=== PATIENT | male | born 1955 | race Hispanic/Latino ===

== ENCOUNTER 2017-12-17 21:45 | Inpatient (IN) | payer MEDICARE, BC ==
[2017-12-17 21:45] VITALS: BMI 26.6
--- NOTE | 2017-12-17 22:25 | ED PDOC ---
Arrival/HPI - General Chief Complaint: Alcohol Ingestion Time Seen by Provider: 12/17/17 21:49 Historian: Patient, EMS - History of Present Illness Narrative History of Present Illness (Text): 12/17/17 22:21 62 year old male, whose past medical history includes coronary artery bypass graft, diabetes, and hypertension presents to the emergency department via ambulance for public intoxication. Patient admits to have been drinking alcohol tonight. He also states he has been experiencing intermittent chest pain, but denies any shortness of breath. Patient denies any drug use. Patient denies any fever, chills, shortness of breath, nausea, vomiting, diarrhea, urinary symptoms, back pain, neck pain, headache, dizziness, or any other complaints. Time/Duration: Other (tonight) Symptom Onset: Gradual Symptom Course: Unchanged Activities at Onset: Light Context: Street Past Medical History - Provider Review Nursing Documentation Reviewed: Yes - Endocrine/Metabolic Hx Diabetes Mellitus Type 1: Yes - Psychiatric Hx Substance Use: No - Surgical History Other/Comment: Triple Bypass - year unknown. Family/Social History - Physician Review Nursing Documentation Reviewed: Yes Family/Social History: No Known Family HX Smoking Status: Unknown If Ever Smoked Hx Alcohol Use: Yes Frequency of alcohol use: Few days per week Hx Substance Use: No Allergies/Home Meds Allergies/Adverse Reactions: Allergies Unobtainable Allergy (Verified 12/17/17 21:45) Home Medications: Home Meds Medication Instructions Recorded Confirmed Unobtainable 12/17/17 12/17/17 Review of Systems - Physician Review All systems were reviewed & negative as marked: Yes - Review of Systems Constitutional: absent: Fevers, Other (chills) Respiratory: absent: SOB Cardiovascular: Chest Pain Gastrointestinal: absent: Diarrhea, Nausea, Vomiting Genitourinary Male: absent: Dysuria, Frequency, Hematuria Musculoskeletal: absent: Back Pain, Neck Pain Neurological: absent: Headache, Dizziness Physical Exam Vital Signs Reviewed: Yes Vital Signs Temp Pulse Resp BP Pulse Ox 12/17/17 21:51 97.9 F 69 19 127/77 100 Temperature: Afebrile Blood Pressure: Normal Pulse: Regular Respiratory Rate: Normal Appearance: Positive for: Well-Appearing, Non-Toxic, Comfortable Pain Distress: None Mental Status: Positive for: Alert and Oriented X 3 (intoxicated) - Systems Exam Head: Present: Atraumatic, Normocephalic Pupils: Present: PERRL Extroacular Muscles: Present: EOMI Conjunctiva: Present: Normal Mouth: Present: Moist Mucous Membranes Neck: Present: Normal Range of Motion Respiratory/Chest: Present: Clear to Auscultation, Good Air Exchange, Other (surgical scar midline on chest). No: Respiratory Distress, Accessory Muscle Use Cardiovascular: Present: Regular Rate and Rhythm, Normal S1, S2. No: Murmurs Abdomen: No: Tenderness, Distention, Peritoneal Signs Back: Present: Normal Inspection Upper Extremity: Present: Normal Inspection. No: Cyanosis, Edema Lower Extremity: Present: Normal Inspection. No: Edema Neurological: Present: GCS=15, CN II-XII Intact, Speech Normal Skin: Present: Warm, Dry, Normal Color. No: Rashes Psychiatric: Present: Alert, Oriented x 3, Normal Insight, Normal Concentration, Intoxicated Medical Decision Making ED Course and Treatment: 12/17/17 22:21 Impression: 62 year old male presents for public intoxication tonight and chest pain earlier today. Plan: -- Labs -- EKG -- Chest X-ray -- Reassess and disposition Progress Notes: 12/17/17 22:15 EKG shows NSR at 65 BPM with non-specific ST/T wave changes. Interpreted by me. 12/17/17 23:49 CXR Impression: As read by me, no acute process. 12/17/17 23:[address] Romero who is aware and agrees with the plan. Accepts patient into his service and request to call the medical billing coordinator and Dr. Avery for consult. - Lab Interpretations I have reviewed the lab results: Yes - RAD Interpretation Radiology Orders: 12/17/17 22:15 CHEST PORTABLE [RAD] Stat - EKG Interpretation Interpreted by ED Physician: Yes Type: 12 lead EKG - Scribe Statement The provider has reviewed the documentation as recorded by the Esteeibhue Saravia Provider Scribe Attestation: All medical record entries made by the Scribe were at my direction and personally dictated by me. I have reviewed the chart and agree that the record accurately reflects my personal performance of the history, physical exam, medical decision making, and the department course for this patient. I have also personally directed, reviewed, and agree with the discharge instructions and disposition. Disposition/Present on Arrival - Present on Arrival Any Indicators Present on Arrival: No History of DVT/PE: No History of Uncontrolled Diabetes: No Urinary Catheter: No History of Decub. Ulcer: No History Surgical Site Infection Following: None - Disposition Have Diagnosis and Disposition been Completed?: Yes Diagnosis: Alcohol intoxication, Chest pain Disposition: HOSPITALIZED Disposition Time: 23:59 Patient Plan: Observation Condition: STABLE Discharge Instructions (ExitCare): Chest Pain (ED) Referrals: PCP,NO [Primary Care Provider] - Follow up with primary Forms: Fision (Slovak)
[2017-12-17 22:31] LABS: HEMOGLOBIN 12.5 g/dL (14.0-18.0); MEAN CELL VOLUME 87.5 fl (80.0-105.0); MEAN CORPUSCULAR HEMOGLOBIN 31.2 pg (25.0-35.0); MEAN CORPUSCULAR HGB CONC 35.6 g/dl (31.0-37.0); MEAN PLATELET VOLUME 8.2 fl (7.0-11.0); RBC 4.01 10^6/uL (3.5-6.1); RED CELL DISTRIBUTION WIDTH 13.5 % (11.5-14.5); WHITE BLOOD COUNT 5.6 10^3/ul (4.5-11.0)
[2017-12-17 22:42] LABS: ALB/GLOB RATIO 1.4 (1.1-1.8); ALT/SGPT 41 U/L (7-56); AST/SGOT 39 U/L (17-59); BLOOD UREA NITROGEN 4 mg/dL (7-21); CALCIUM 8.8 mg/dL (8.4-10.5); GFR NON-AFRICAN AMERICAN > 60
[2017-12-17 22:43] LABS: INR 1.14
[2017-12-17 22:54] LABS: TROPONIN I < 0.01 ng/mL
--- NOTE | 2017-12-18 00:32 | CP.PCM.HP ---
History of Present Illness - History of Present Illness History of Present Illness: H&P for Dr. Nick Salomon, PGY1 This is a 62 year old male with PMH of DM, HTN, CAD s/p stents and CABG presenting via EMS for public intoxication. Per patient, he drank alcohol earlier in the evening and does not recollect events leading up to ED admission. He is a poor historian at this time and falls asleep during evaluation. He initially complained of nonspecific chest pain per ED attending. Currently, he denies any complaints including CP, SOB, headaches, fevers, chills, nausea, vomi ting, back pain, urinary complaints, numbness, tingling and swelling. 12 point ROS noted here, otherwise unremarkable. In the ED, EKG showed NSR at rate of 65bpm with no ST changes. Troponin was <0.0 1. CXR showed no active disease (interpreted by me). Alcohol level was 229. PMH: as above SH: denies smoking, admits to occasional drinking, denies drugs Sx: Stents and CABG many years ago FH: Mom and dad both had heart problems All: NKDA Home meds: patient unable to recall Present on Admission - Present on Admission Any Indicators Present on Admission: No Past Patient History - Past Social History Smoking Status: Unknown If Ever Smoked - ENDOCRINE/METABOLIC Hx Diabetes Mellitus Type 1: Yes - PSYCHIATRIC Hx Substance Use: No - SURGICAL HISTORY Other/Comment: Triple Bypass - year unknown. Meds Allergies/Adverse Reactions: Allergies Allergy/AdvReac Type Severity Reaction Status Date / Time Unobtainable Allergy Verified 12/17/17 21:45 Physical Exam - Constitutional Additional comments: lethargic - Head Exam Head Exam: ATRAUMATIC Additional comments: no tongue fasciculations - Eye Exam Eye Exam: EOMI Pupil Exam: PERRL - ENT Exam ENT Exam: Mucous Membranes Moist - Neck Exam Neck exam: Positive for: Normal Inspection - Respiratory Exam Respiratory Exam: Clear to Auscultation Bilateral. absent: Respiratory Distress - Cardiovascular Exam Cardiovascular Exam: REGULAR RHYTHM, +S1, +S2 - GI/Abdominal Exam GI & Abdominal Exam: Normal Bowel Sounds. absent: Firm, Guarding - Extremities Exam Extremities exam: Positive for: normal inspection. Negative for: calf tenderness - Neurological Exam Additional comments: arousable, lethargic, orientated to place, not oriented to time - Skin Skin Exam: Normal Color, Warm Results - Vital Signs Recent Vital Signs: Last Vital Signs Temp 97.9 F 12/17/17 21:51 Pulse 74 12/18/17 00:13 Resp 17 12/18/17 00:13 BP 121/66 12/18/17 00:13 Pulse Ox 99 12/18/17 00:13 - Labs Result Diagrams: 12/17/17 22:00 12/17/17 22:00 Labs: Laboratory Results - last 24 hr 12/17/17 12/17/17 12/17/17 22:00 22:00 22:00 WBC 5.6 RBC 4.01 Hgb 12.5 L Hct 35.1 L MCV 87.5 MCH 31.2 MCHC 35.6 RDW 13.5 Plt Count 250 MPV 8.2 PT 13.0 H INR 1.14 APTT 32.0 Sodium 133 Potassium 4.1 Chloride 96 L Carbon Dioxide 23 Anion Gap 18 BUN 4 L Creatinine 0.7 L Est GFR ( Amer) > 60 Est GFR (Non-Af Amer) > 60 Random Glucose 259 H Calcium 8.8 Total Bilirubin 0.4 AST 39 ALT 41 Alkaline Phosphatase 50 Lactate Dehydrogenase 383 Total Creatine Kinase 43 Troponin I < 0.01 Total Protein 6.9 Albumin 4.0 Globulin 2.8 Albumin/Globulin Ratio 1.4 Alcohol, Quantitative 12/17/17 22:00 WBC RBC Hgb Hct MCV MCH MCHC RDW Plt Count MPV PT INR APTT Sodium Potassium Chloride Carbon Dioxide Anion Gap BUN Creatinine Est GFR ( Amer) Est GFR (Non-Af Amer) Random Glucose Calcium Total Bilirubin AST ALT Alkaline Phosphatase Lactate Dehydrogenase Total Creatine Kinase Troponin I Total Protein Albumin Globulin Albumin/Globulin Ratio Alcohol, Quantitative 229 H Assessment & Plan - Assessment and Plan (Free Text) Assessment: This is a 62 year old male with PMH of DM, HTN, CAD s/p stents and CABG presenting via EMS for public intoxication. Initially reported chest pain that has since subsided. Will be monitored in tele. Plan: Alcohol intoxication: -banana bag -folic acid, thiamine -ativan 1mg q6 prn for agitation -WA protocol -alcohol level on admission was 229 Chest Pain -initial EKG showed NSR at 65bpm -initial troponin was <0.01 -Repeat EKG in AM -Repeat troponin in AM x2 -CXR showed no active disease, interpreted by me -Hx of stents/CABG -cardiology on consult, Dr. Avery Hx of DM -glucose on admission is 259 -Low dose insulin sliding scale ACHS -Carb consistent, heart healthy diet Hx of HTN -BP currently controlled -patient unable to recall home meds, will need to reassess in AM PPX with heparin and pepcid Further Recommendations per Dr. Romero
[2017-12-18 01:00] VITALS: O2SAT 100
[2017-12-18] MEDS ORDERED: Multivitamin (MVI) 10 ML, Thiamine 100 MG, Folic Acid 1 MG in Sodium Chloride 0.9% 1,00... IV ONE (01:14)
[2017-12-18 06:29] LABS: BASO # 0.03 K/mm3 (0.0-2.0); BASO % 0.6 % (0.0-3.0); EOS # 0.2 (0.0-0.7); EOS % 3.4 % (1.5-5.0); GRAN # 2.07 (1.4-6.5); GRAN % 44.7 % (50.0-68.0); HEMOGLOBIN 10.6 g/dL (14.0-18.0); LYMPH # 1.8 (1.2-3.4); LYMPH % 37.9 % (22.0-35.0); MEAN CELL VOLUME 88.2 fl (80.0-105.0); MEAN CORPUSCULAR HEMOGLOBIN 30.5 pg (25.0-35.0); MEAN CORPUSCULAR HGB CONC 34.6 g/dl (31.0-37.0); MEAN PLATELET VOLUME 7.8 fl (7.0-11.0); MONO # 0.6 (0.1-0.6); MONO % 13.4 % (1.0-6.0); RBC 3.47 10^6/uL (3.5-6.1); RED CELL DISTRIBUTION WIDTH 13.6 % (11.5-14.5); WHITE BLOOD COUNT 4.6 10^3/ul (4.5-11.0)
[2017-12-18 06:50] LABS: ALB/GLOB RATIO 1.2 (1.1-1.8); ALBUMIN 3.3 g/dL (3.0-4.8); ALT/SGPT 41 U/L (7-56); AST/SGOT 32 U/L (17-59); BLOOD UREA NITROGEN 4 mg/dL (7-21); CALCIUM 8.4 mg/dL (8.4-10.5); GFR NON-AFRICAN AMERICAN > 60
[2017-12-18] MEDS: Insulin Reg-LOW-Coverage SC SCH ×4 (08:17→22:30)
--- NOTE | 2017-12-18 10:33 | RAD ---
Date of service: 12/17/2017 HISTORY: chest pain COMPARISON: No prior. FINDINGS: LUNGS: No active pulmonary disease. PLEURA: No significant pleural effusion identified, no pneumothorax apparent. CARDIOVASCULAR: No atherosclerotic calcification present No radiographic findings to suggest acute or significant cardiovascular disease. Incidental Finding(s): Postoperative changes related to sternotomy. OSSEOUS STRUCTURES: No significant abnormalities. VISUALIZED UPPER ABDOMEN: Normal. OTHER FINDINGS: None. IMPRESSION: No active disease.
[2017-12-18 11:18] LABS: IRON 39 ug/dL (45-180)
[2017-12-18 11:27] LABS: % IRON SATURATION 11 % (20-55); TOTAL IRON BINDING CAPACITY 341 ug/dL (261-462)
[2017-12-18 11:38] LABS: FREE T4 1.35 ng/dL (0.78-2.19); T4 7.7 ug/dL (5.5-11.0)
[2017-12-18 11:50] LABS: HDL CHOLESTEROL 37 mg/dL (29-60)
[2017-12-18 11:51] LABS: T3 1.7 ng/mL (0.97-1.69)
[2017-12-18] MEDS: Enoxaparin 40 mg Syringe SC SCH (11:56)
[2017-12-18] MEDS: Multivitamin With Minerals Tab PO SCH (11:57)
[2017-12-18 12:01] LABS: LDL CHOLESTEROL 54 mg/dL (0-129)
[2017-12-18 12:03] LABS: TROPONIN I < 0.01 ng/mL
--- NOTE | 2017-12-18 12:20 | CARD ---
APPROVED REPORT Date of service: 12/18/2017 EKG Measurement Heart [id number] <Conclusion> Normal sinus rhythm Normal ECG
--- NOTE | 2017-12-18 12:26 | CARD ---
APPROVED REPORT Date of service: 12/17/2017 EKG Measurement Heart [id number] <Conclusion> Normal sinus rhythm Normal Electrocardiogram
[2017-12-18] MEDS: Levalbuterol 0.63 MG/3 ML Inhal Soln UD IH SCH ×2 (13:21→19:42)
--- NOTE | 2017-12-18 14:26 | CON ---
DATE OF CONSULTATION: 12/18/2017 REASON FOR CONSULTATION: Coronary artery disease and alcohol intoxication. HISTORY OF PRESENT ILLNESS: The patient is a 62-year-old white male who has a history of coronary artery bypass surgery in 1985 at the age of 31 according to the patient and following that had multiple stents totaling about 18 at [facility], the most recent one was few months ago. The patient is on aspirin and Plavix according to the patient himself. He was brought in because of public intoxication. The patient denies any chest pain or shortness of breath at this time. There was no reported ventricular tachycardia since the patient's presentation to the emergency room. SOCIAL HISTORY: The patient is in a relation. He does not smoke, but he drinks. He is retired. MEDICATIONS: Clonidine 0.1 mg every 4 hours p.r.n., aspirin 81 mg once a day, Librium 25 mg every 4 hours p.r.n., Lipitor 40 mg once a day, Protonix 40 mg p.o. once a day, thiamine 100 mg orally daily, Zofran 4 mg intravenously every 4 hours p.r.n. REVIEW OF SYSTEMS: No nausea or vomiting. No fever or chills. PHYSICAL EXAMINATION: The patient is a middle-aged male who does not appear to be in acute distress. VITAL SIGNS: Blood pressure 104/63, heart rate 70, temperature 97.5, respirations 19. HEENT: Normocephalic. CHEST: Clear. HEART: S1 and S2 regular. ABDOMEN: Soft. EXTREMITIES: No edema. Chest x-ray revealed mild cardiomegaly, prominent bronchovascular markings, otherwise clear lungs. EKG revealed normal sinus rhythm at rate of 65. LABORATORY DATA: Hemoglobin and hematocrit 10.6 and 30.6. White count and platelet count are within normal limits. Alcohol level 229 on admission. SMA-7: Sodium 136, potassium 4, chloride 102, CO2 of 25, glucose 194, BUN 4, creatinine 0.6. Three sets of troponins are negative. ASSESSMENT: 1. Alcohol intoxication. 2. Coronary artery disease, status post coronary artery bypass surgery in 1985 with multiple coronary stenting, the most recent one was a few months ago at [facility]. 3. Anemia. 5. Uncontrolled diabetes mellitus. RECOMMENDATIONS: Continue clonidine 0.1 mg once a day, Librium 25 mg p.o. every 6 hours, Lipitor 40 mg once a day, thiamine 100 mg once a day, aspirin 81 mg once a day. Start Plavix 75 mg once a day, Coreg 3.125 mg twice a day. Obtain an echocardiogram and urine for drug screen. Harry Hagen MD
[2017-12-18 16:49] LABS: FERRITIN 16.5 ng/mL
[2017-12-18 17:20] LABS: FOLATE > 20.0 ng/mL
--- NOTE | 2017-12-18 23:48 | HP ---
HISTORY OF PRESENT ILLNESS: The patient is a 62-year-old male who was brought to the [facility] emergency room via [facility] with alcohol intoxication. According to the ER physician evaluation note, the patient has history of diabetes, coronary artery disease, coronary artery bypass, hypertension, presented to the emergency room via [facility] for alcohol intoxication. The patient admits alcohol drinking heavily. The patient also is complaining of intermittent chest pain. REVIEW OF SYSTEMS: A 14-system review was done, pertinent positive and negative dictated above. CODE STATUS: Full code. ALLERGIES: UNKNOWN. HEIGHT: 5 feet 9 inches. WEIGHT: 180. BMI: 27. SOCIAL HISTORY: Positive for alcoholism. Positive for questionable smoking. OCCUPATIONAL HISTORY: Not available. FAMILY HISTORY: Not available. PAST MEDICAL HISTORY: Which is available through the [facility] is positive for coronary artery disease, coronary artery bypass graft, hypertension, diabetes, history of alcohol dependence and addiction. The patient does not have any visits in the [facility] or in the [facility]. The patient was seen and evaluated in the emergency room by the ER physician. PHYSICAL EXAMINATION: VITAL SIGNS: T-max is 98.2; telemetry shows sinus rhythm, heart rate 69, 74, 72, 52 and 70; blood pressure 127/77; 128/88 and 110/74; respirations 20; and O2 saturation 100%. GENERAL: The patient is seen. HEAD: Normocephalic and atraumatic. HEENT: Shows pink conjunctivae. Anicteric sclerae. No oropharyngeal lesion. Mucous membrane is dry. No neck rigidity. CHEST: Positive median sternotomy surgical scar. LUNGS: Shows occasional rhonchi. CARDIOVASCULAR: Shows S1, S2, regular rhythm. ABDOMEN: Soft. Positive bowel sounds. The patient appears to be arousable, but slightly lethargic. No jugular venous distention. No palpable hepatosplenomegaly. GENITALIA: Male. RECTAL: Deferred. EXTREMITIES: Shows no pitting edema, no calf numbness. No Homans' signs. NEUROLOGIC: The patient is arousable, lethargic, oriented to place, not oriented to year, date, or month. SKIN: Shows positive median sternotomy surgical scar. GAIT: Not tested. LABORATORY DATA: There are two CBCs, WBC 5.6, repeat CBC showed WBC of 4.6, hemoglobin/hematocrit 12.5/35.1 and 10.6/30.6 and platelet 250 and 194. PT/PTT 13.0/32.0. Sodium 133 and 136, potassium 4.1 and 4.0, chloride 96 to 102, CO2 of 23 and 25, anion gap 18 and 13, BUN 4, creatinine 0.6 and 0.7. GFR greater than 60. Glucose 259, repeat glucose 194. LFTs are normal. Troponin is negative x3 sets. Cholesterol 92, LDL 54, and HDL 37. Alcohol level is 229. DIAGNOSTIC DATA: The patient's chest x-ray was reviewed, which shows median sternotomy surgical scar. EKG shows normal sinus rhythm. The patient was seen and evaluated in the emergency room by the ER physician. The patient was advised to be admitted. DIAGNOSES: 1. Alcohol intoxication with history of alcohol use disorder and alcohol dependence. 2. Chest pain with history of coronary artery disease and coronary artery bypass graft. 3. Diabetes mellitus with hyperglycemia. 4. History of hypertension. 5. Normocytic anemia. 6. Hyperglycemia. 7. Acute alcohol intoxication. 8. Alcohol use disorder. 9. History of hypertension. 10. Diabetes mellitus. 11. Coronary artery disease. 12. Coronary artery bypass graft. PLAN: At this time, the patient will be admitted to telemetry observation. The patient has been ordered repeat labs. The patient has been ordered hepatitis panel, vitamin B12, iron studies, ferritin, hemoglobin A1c, lipid panel, fructosamine, GlycoMark, HIV, erythropoietin, repeat CBC ordered. Cardiology consultation requested. Diabetic education referral ordered. TCU ordered. RPR ordered. CURRENT MEDICATIONS: The patient is started on CIWA protocol. The patient is started on Coreg 3.125 twice a day, trazodone 50 h.s. p.r.n., aspirin 81 mg daily, folic acid 1 mg daily, Humulin sliding scale coverage a.c. and h.s., Librium protocol, Lipitor 40 mg daily, Lovenox 40 mg subcu daily. The patient is also started on Plavix 75 mg daily, Protonix 40 mg daily, multivitamin 1 tablet daily Tylenol p.r.n., thiamine 100 mg daily, Xopenex nebulizer, Zofran ordered, oxygen and incentive spirometry ordered. Echo with Doppler ordered. ÁNGEL stockings, SCDs, neuro checks, seizure precaution, head of the bed at 30 degrees, physical therapy and occupational therapy all ordered. At present, the patient is awaiting for further diagnostic therapeutic intervention. Cardiology evaluation. The patient's further management will be dependent upon the patient's clinical condition, hemodynamic status, and as per the patient response to therapeutic intervention as per the patient's diagnostic test results and as per recommendation by all the physicians involved in the care of the patient. At present, the patient is admitted to telemetry for further management evaluation. At present, the patient will be continued on the above therapeutic intervention. Dictated and electronically signed, not read. Gerardo Romero MD
[2017-12-19] MEDS: Levalbuterol 0.63 MG/3 ML Inhal Soln UD IH SCH ×3 (01:13→14:22)
[2017-12-19] MEDS ORDERED: Pantoprazole 40 mg EC Tab PO SCH (06:00)
[2017-12-19 06:38] LABS: BASO # 0.03 K/mm3 (0.0-2.0); BASO % 0.4 % (0.0-3.0); EOS # 0.2 (0.0-0.7); EOS % 2.9 % (1.5-5.0); GRAN # 4.4 (1.4-6.5); HEMOGLOBIN 11.2 g/dL (14.0-18.0); LYMPH # 1.6 (1.2-3.4); LYMPH % 22.7 % (22.0-35.0); MEAN CELL VOLUME 90.4 fl (80.0-105.0); MEAN CORPUSCULAR HEMOGLOBIN 30.6 pg (25.0-35.0); MEAN CORPUSCULAR HGB CONC 33.8 g/dl (31.0-37.0); MEAN PLATELET VOLUME 8.6 fl (7.0-11.0); MONO # 0.7 (0.1-0.6); RBC 3.66 10^6/uL (3.5-6.1); RED CELL DISTRIBUTION WIDTH 13.8 % (11.5-14.5); WHITE BLOOD COUNT 6.9 10^3/ul (4.5-11.0)
[2017-12-19 06:46] LABS: ALB/GLOB RATIO 1.1 (1.1-1.8); ALBUMIN 3.1 g/dL (3.0-4.8); ALT/SGPT 54 U/L (7-56); AST/SGOT 44 U/L (17-59); BILIRUBIN,DIRECT 0.2 mg/dL (0.0-0.4); BLOOD UREA NITROGEN 6 mg/dL (7-21); CALCIUM 8.6 mg/dL (8.4-10.5); GFR NON-AFRICAN AMERICAN > 60
[2017-12-19 08:05] LABS: HEPATITIS B SURFACE AG Negative (NEGATIVE)
[2017-12-19 08:11] LABS: HEPATITIS A IGM NEGATIVE (NEGATIVE); HEPATITIS B CORE AB NEGATIVE (NEGATIVE)
[2017-12-19 08:22] LABS: HEPATITIS C ANTIBODY NEGATIVE (NEGATIVE)
[2017-12-19] MEDS: Insulin Reg-LOW-Coverage SC SCH ×2 (08:48→14:02)
[2017-12-19] MEDS ORDERED: Magnesium Sulfate 2 gm/50 ml 2 GM/50 ML BAG IVPB ONE ×2 (08:51→11:55)
--- NOTE | 2017-12-19 09:21 | CP.PCM.PN ---
Subjective - Date & Time of Evaluation Date of Evaluation: 12/19/17 Time of Evaluation: 06:00 - Subjective Subjective: Patient seen and evaluated bedside. No acute issues overnight. Patient says he wants to leave, but was made aware he still has symptoms of withdrawal. Denies any chest pain, shortness of breath, fever, chills, nausea, vomiting, or any ot her complaints at this time. Objective - Vital Signs/Intake and Output Vital Signs (last 24 hours): Temp Pulse Resp BP Pulse Ox 97.5 F L 61 19 105/69 100 12/18/17 12:00 12/19/17 06:00 12/18/17 12:00 12/18/17 17:38 12/18/17 06:00 Intake and Output: 12/19/17 12/19/17 06:59 18:59 Intake Total 240 Output Total 700 Balance -460 - Medications Medications: Current Medications Acetaminophen (Tylenol 325mg Tab) 650 mg PO Q6 PRN PRN Reason: TEMP>=99.5F Acetaminophen (Tylenol 650 Mg Supp) 650 mg RC Q6H PRN PRN Reason: TEMP>=99.5F Aspirin (Ecotrin) 81 mg PO DAILY [facility] Last Admin: 12/18/17 12:00 Dose: 81 mg Atorvastatin Calcium (Lipitor) 40 mg PO DIN [facility] Last Admin: 12/18/17 17:39 Dose: 40 mg Carvedilol (Coreg) 3.125 mg PO BID [facility] Last Admin: 12/18/17 17:38 Dose: 3.125 mg Chlordiazepoxide (Librium) 25 mg PO Q6 [facility]; Taper Stop: 12/22/17 11:14 Last Admin: 12/19/17 06:07 Dose: 25 mg Chlordiazepoxide (Librium) 25 mg PO Q4H PRN PRN Reason: Withdrawl Clonidine HCl (Catapres) 0.1 mg PO Q4H PRN PRN Reason: Symptoms of alcohol withdrawl Clopidogrel Bisulfate (Plavix) 75 mg PO DAILY [facility] Last Admin: 12/18/17 15:18 Dose: 75 mg Enoxaparin Sodium (Lovenox) 40 mg SC DAILY [facility]; Protocol Last Admin: 12/18/17 11:56 Dose: 40 mg Folic Acid (Folic Acid) 1 mg PO DAILY [facility] Last Admin: 12/18/17 10:21 Dose: 1 mg Iron Sucrose 200 mg/ Sodium (Chloride) 110 mls @ 110 mls/hr IVPB DAILY FATOU Stop: 12/22/17 10:59 Last Admin: 12/19/17 00:30 Dose: 110 mls/hr Magnesium Sulfate (Magnesium Sulfate 2 Gm/50 Ml Water) 2 gm in 50 mls @ 50 mls/hr IVPB ONCE ONE Stop: 12/19/17 09:50 Insulin Human Regular (Humulin R Low) 0 units SC ACHS FATOU; Protocol Last Admin: 12/19/17 08:48 Dose: 2 units Levalbuterol HCl (Xopenex) 0.63 mg IH [id number] [id number] Last Admin: 12/19/17 07:23 Dose: 0.63 mg Lorazepam (Ativan) 1 mg IVP Q6 FATOU; Protocol Last Admin: 12/19/17 06:08 Dose: 1 mg Multivitamins/Minerals (Therapeutic-M Tab) 1 tab PO DAILY [facility] Last Admin: 12/18/17 11:57 Dose: 1 tab Ondansetron HCl (Zofran Inj) 4 mg IVP Q4H PRN PRN Reason: Nausea/Vomiting Pantoprazole Sodium (Protonix Ec Tab) 40 mg PO 0600 FATOU Thiamine HCl (Vitamin B1 Tab) 100 mg PO DAILY FATOU Trazodone HCl (Desyrel) 50 mg PO HS PRN PRN Reason: Insomnia - Labs Labs: 12/19/17 05:50 12/19/17 05:50 PT 13.0 SECONDS (9.4-12.5) H 12/17/17 22:00 INR 1.14 12/17/17 22:00 APTT 32.0 Seconds (25.1-36.5) 12/17/17 22:00 - Constitutional Appears: Non-toxic, No Acute Distress - Head Exam Head Exam: ATRAUMATIC, NORMAL INSPECTION, NORMOCEPHALIC - Eye Exam Eye Exam: EOMI, Normal appearance - ENT Exam ENT Exam: Mucous Membranes Moist - Neck Exam Neck Exam: Full ROM, Normal Inspection - Respiratory Exam Respiratory Exam: Clear to Ausculation Bilateral, NORMAL BREATHING PATTERN - Cardiovascular Exam Cardiovascular Exam: REGULAR RHYTHM, +S1, +S2 - GI/Abdominal Exam GI & Abdominal Exam: Soft. absent: Tenderness - Extremities Exam Extremities Exam: absent: Pedal Edema Additional comments: fine tremor in hands bilaterally - Neurological Exam Neurological Exam: Alert, Awake, Oriented x3 - Psychiatric Exam Psychiatric exam: Normal Mood - Skin Skin Exam: Normal Color, Warm Assessment and Plan - Assessment and Plan (Free Text) Assessment: This is a 62 year old male with PMH of DM, HTN, CAD s/p stents and CABG being treated for alcohol withdrawal. Initially reported chest pain that has since subsided. Plan: Alcohol intoxication: -folic acid, thiamine -ativan -librium -CIWA protocol -magnesium repleted Chest Pain-resolved -initial EKG showed NSR at 65bpm -troponin negative x3 -CXR showed no active disease -cardiology on consult, Dr. Avery Hx of stents/CABG -apirin -plavix -lipitor Hx of DM -Low dose insulin sliding scale ACHS -Carb consistent, heart healthy diet -A1C: 8.8 -diabetes education Hx of HTN -BP currently controlled -clonidine PPX with heparin and pepcid Further Recommendations per Dr. Romero
[2017-12-19 10:15] LABS: FRUCTOSAMINE 333 umol/L (190-270)
[2017-12-19] MEDS: Multivitamin With Minerals Tab PO SCH (10:51)
[2017-12-19] MEDS: Enoxaparin 40 mg Syringe SC SCH (10:52)
[2017-12-19 12:00] VITALS: BP 104/64; PULSE 75; RESP 18; TEMP 97.7
--- NOTE | 2017-12-19 12:41 | PN ---
DATE: 12/19/2017 SUBJECTIVE: The patient denies any chest pain, dizziness or shortness of breath. PHYSICAL EXAMINATION: VITAL SIGNS: Blood pressure 105/69, heart rate 63, temperature 97.5. HEENT: Normocephalic. CHEST: Clear. HEART: S1, S2 regular. EXTREMITIES: No edema. LABORATORY DATA: Hemoglobin and hematocrit of 11.2 and 33.1, white count and platelet count are within normal limits. Hepatitis profile is negative. HIV positive screening is pending. SMA-7, sodium 135, potassium 4.2, chloride 100, CO2 of 28, glucose 200, BUN 6, creatinine 0.7. ASSESSMENT: 1. Alcohol intoxication. 2. Coronary artery disease, status post coronary bypass surgery and multiple coronary stenting after. 3. Anemia. 4. Uncontrolled diabetes mellitus. RECOMMENDATIONS: Continue clonidine 0.1 mg every 4 hours p.r.n. Continue Coreg 3.125 mg twice a day, aspirin 81 mg once a day, Librium 25 mg p.o. every 4 hours p.r.n., Lipitor 40 mg once a day, Plavix 75 mg once a day, thiamine 100 mg p.o. daily. I would review the echocardiograph study performed today and follow up urine for drug screen. Harry Hagen MD
[2017-12-19] MEDS ORDERED: Magnesium Sulfate 2 GM in Sodium Chloride 0.9% 100 ML IVPB ONE (14:15)
--- NOTE | 2017-12-19 16:12 | DS ---
FINAL PROGRESS NOTE AND DISCHARGE SUMMARY DATE: 12/19/2017 SUBJECTIVE: The patient is seen in room 260, bed 1. Patient is alert, awake, responsive. Positive tremulousness noted of the upper extremity. Overnight nurse's notes were reviewed. PHYSICAL EXAMINATION: VITAL SIGNS: His T-max is 97.5, heart rate 61-65, telemetry normal sinus rhythm, blood pressure 105/69, respiration 18-20, O2 sat 99-100%. HEENT: Head: Normocephalic, atraumatic. HEENT examination shows pinkish pale conjunctivae. Anicteric sclerae. No oropharyngeal lesion. NECK: No neck rigidity. CHEST: Kyphosis. LUNGS: Shows no rales, crackles or wheezing. CARDIOVASCULAR: S1 and S2, regular rhythm. ABDOMEN: Soft. Positive bowel sound. GENITALIA: Male. RECTAL: Deferred. EXTREMITIES: Shows no pitting edema, no calf tenderness. No Homans' sign. NEUROLOGICAL: The patient is alert, awake, responsive. Positive tremulousness noted and tremors of the upper extremity noted. DIAGNOSTICS: From 12/19/2017, WBC 6.9, hemoglobin and hematocrit 11.2 and 33.1, platelet 211. Sodium 135, potassium 4.2, chloride 100, CO2 28, anion gap 10, BUN 6, creatinine 0.7, GFR greater than 60. Fingerstick blood sugar 298, 255, 200, 250, 189, fructosamine 333, hemoglobin A1c 8.8, magnesium 1.5, iron 39, iron saturation 11, ferritin 16. B12 383. Alcohol level 229 down to 10. RPR nonreactive. Hepatitis A, B, C negative. HIV results pending. Echocardiogram results pending. FINAL IMPRESSION & PLAN & DISCHARGE DIAGNOSES: 1. Chest pain, etiology undetermined. 2. Acute alcohol intoxication with impending delirium tremens. 3. History of coronary artery disease, history of coronary artery bypass, history of multiple coronary stents. 4. Iron-deficiency normocytic anemia. 5. Uncontrolled diabetes mellitus with hemoglobin A1c of 8.8 and elevated fructosamine. 6. Hypomagnesemia. PLAN AT THIS TIME: The patient needs to be watched for impending delirium tremors. Echocardiogram will be reviewed when the results are available. The patient's urine drug screen, urinalysis still pending despite multiple orders. The patient seen by Cardiology. Their recommendations noted. Echocardiogram results pending. MEDICATIONS: Ativan 1 mg IV every 6 p.r.n. The patient completed the banana bag, clonidine 0.1 p.o. every 4 hours p.r.n. The patient is on Coreg 3.125 twice a day, Desyrel 50 mg at bedtime p.r.n., Ecotrin 81 mg daily, folic acid 1 mg daily, Humulin low-dose sliding scale coverage before meals and at bedtime, IV Venofer 200 mg daily for 5 doses, Librium scheduled and tapering protocol with p.r.n. Librium, Lipitor 40 daily, Lovenox 40 mg subcu daily, magnesium sulfate riders x2 orders, Plavix 75 mg daily, Protonix 40 mg daily, multivitamin 1 tablet ordered daily, Tylenol p.r.n., thiamine 100 mg p.o. daily, Xopenex nebulizer 0.63 mg and Zofran 4 mg IV every 4 hours p.r.n. The patient will be given total of 2 doses of magnesium sulfate for hypomagnesemia. Repeat labs will be ordered. The patient was also advised yesterday and again advised today to have the patient's next of kin, which is the patient's niece as indicated by the patient yesterday that she is the only next of kin available. I have advised the patient and the niece yesterday and again to the patient today to bring all the medications which he is taking, so we can order his medications which are supposed to be continued, but the patient has not brought all the home medications to be updated in our computer system. PATIENT UPON RETURN FROM ECHOCARDIOGRAM SIGNED OUT AMA, DESPITE PATIENT ADVISED NOT SIGN OUT AMA. ALL RISKS AND CONSEQUENCES EXPLAINED TO PATIENT. Dictated and electronically signed, not read. Gerardo Romero MD MTDJonathan
[2017-12-19] MEDS ORDERED: A C T ELECTRONICS XX ONE (16:58)
--- NOTE | 2017-12-20 09:21 | CARD ---
APPROVED REPORT Date of service: 12/19/2017 EXAM: Two-dimensional and M-mode echocardiogram with Doppler and color Doppler. Other Information Quality : FairRhythm : INDICATION CVA/TIA 2D DIMENSIONS Left Atrium (2D)3.2 (1.6-4.0cm)IVSd1.0 (0.7-1.1cm) LVDd5.6 (3.9-5.9cm)PWd1.1 (0.7-1.1cm) LVDs3.8 (2.5-4.0cm)FS (%) 32.8 % LVEF (%)60.0 (>50%) M-Mode DIMENSIONS Aortic Root2.90 (2.2-3.7cm)Aortic Cusp Exc.2.10 (1.5-2.0cm) Aortic Valve AoV Peak Ugqwqaji821.0cm/s Mitral Valve MV E Fjlrduwg28.7cm/sMV A Wykynvjz69.5cm/sE/A ratio0.8 TDI E/Lateral E'0.0E/Medial E'0.0 Tricuspid Valve TR Peak [id number]/sRAP [id number] Peak Gr.22mmHg [id number] LEFT VENTRICLE The left ventricle is normal size. There is normal left ventricular wall thickness. The left ventricular function is normal. The left ventricular ejection fraction is within the normal range. There is normal LV segmental wall motion. RIGHT VENTRICLE The right ventricle is normal size. ATRIA The left atrium size is normal. The right atrium size is normal. The interatrial septum is intact with no evidence for an atrial septal defect. AORTIC VALVE The aortic valve is normal in structure. MITRAL VALVE The mitral valve is normal in structure. Mitral regurgitation is mild to moderate. TRICUSPID VALVE The tricuspid valve is normal in structure. There is mild tricuspid regurgitation. PULMONIC VALVE The pulmonary valve is normal in structure. GREAT VESSELS The aortic root is normal in size. PERICARDIAL EFFUSION There is no pericardial effusion. <Conclusion> The left ventricle is normal size. There is normal left ventricular wall thickness. The left ventricular function is normal. Mitral regurgitation is mild to moderate. There is mild tricuspid regurgitation.
== END 2017-12-19 18:02 | disposition left against medical advice (07) | DRG 894 ==
LOC: ED 21:45 → ERH 23:59 → MERGE 23:59 → ERH 12-18 00:29 → 2RNO 12-18 00:57 → OBSVTOIN 12-19 14:23
PROVIDERS: ADMIT Internal Medicine; ATTEND Internal Medicine
DX: F10.239 Alcohol dependence with withdrawal, unspecified (principal); F10.229 Alcohol dependence with intoxication, unspecified; Y90.7 Blood alcohol level of 200-239 mg/100 ml; I25.10 Atherosclerotic heart disease of native coronary artery without angina pectoris; I10 Essential (primary) hypertension; E10.65 Type 1 diabetes mellitus with hyperglycemia; R07.9 Chest pain, unspecified; D50.9 Iron deficiency anemia, unspecified; E83.42 Hypomagnesemia; Z95.5 Presence of coronary angioplasty implant and graft; Z95.1 Presence of aortocoronary bypass graft